=== PATIENT | male | born 1995 | race African-American/Black ===

== ENCOUNTER 2025-03-17 12:30 | Emergency (ER) | payer SELFPAY ==
[2025-03-17 12:34] VITALS: BP 120/94; PULSE 65; TEMP 36.5; O2SAT 98
--- OUTSIDE RECORDS SUMMARY | 2025-03-17 12:44 | XMS_ITS | Clinical Summary ---
Author Organization [facility] [employer] [facility] tem Address [id number] [address] [place] [address] Care Team Providers Care Sql Report Analyst Name Role Phone Pcp, Not In System Primary Care Provider Unavail able Allergies No known active allergies Medications No known medications Encounters Date Type Department Care Team Description 01/20/2025 4:37 PM EDT - 01/20/2025 5:50 PM EDT Emergency [facility] [address] [place] [phone] Asymptomatic hypertension (Primary Dx) Discharge Disposition: Home 01/20/2025 Travel from Last 3 Months Social History Tobacco Use Types Packs/Day Years Used Date Smoking Tobacco: Never Assessed Sex and Gender Information Value Date Recorded Sex Assigned at Not on file Legal Sex Male 4:23 PM EDT Gender Identity Not on file Sexual Orientation Not on file Last Filed Vital Signs Vital Sign Reading Time Taken Comments Blood Pressure 129/77 01/20/2025 5:45 PM EDT Pulse 71 01/20/2025 5:50 PM EDT Temperature 36.7 C (98.1 F) 01/20/2025 4:42 PM EDT Respiratory Rate 18 01/20/2025 5:50 PM EDT Oxygen Saturation 96% 01/20/2025 5:45 PM EDT Inhaled Oxygen Concentration - - Weight 107.5 kg (237 lb) 01/20/2025 4:44 PM EDT Height 188 cm (6' 2 ) 01/20/2025 4:44 PM EDT Body Mass Index 30.43 01/20/2025 4:44 PM EDT Plan of Treatment Not on file Medical Devices Not on file Procedures Procedure Name Priority Date/Time Associated Diagnosis Comments POCT TROPONIN (WBCTI) Routine 01/20/2025 5:17 PM EDT POCT CBC Routine 01/20/2025 5:12 PM EDT POCT ELECTROLYTES W/ BUN, CREAT, GLUC, IONIC CA Routine 01/20/2025 5:10 PM EDT ECG 12-LEAD STAT 01/20/2025 5:02 PM EDT from Last 3 Months Results * POCT Troponin (01/20/2025 5:17 PM EDT) Pathologist [facility] POC Troponin <0.01 0.00 - 0.08 ng/mL 01/20/2025 5:19 PM EDT [facility] 01/20/2025 5:17 PM EDT 01/20/2025 5:19 PM EDT us POINT OF CARE TEST ORDERABLES Fi nal Result [facility] [address] [place] [id number], * POCT CBC (01/20/2025 5:12 PM EDT) WBC (POC) 5.0 4.0 - 11.0 1E+9/l 01/20/2025 5:08 PM EDT [facility] RBC (POC) 5.44 4.10 - 5.70 1E+12/l 01/20/2025 5:08 PM EDT [facility] POC Hemoglobin 15.8 13.0 - 17.0 g/dl 01/20/2025 5:08 PM EDT [facility] POC Hematocrit 46 39 - 49 % 01/20/2025 5:08 PM EDT [facility] MCV (POC) 84.3 80.0 - 100.0 fl 01/20/2025 5:08 PM EDT [facility] MCH (POC) 29.1 27.0 - 34.0 pg 01/20/2025 5:08 PM EDT [facility] MCHC (POC) 34.5 32.0 - 36.0 g/dl 01/20/2025 5:08 PM EDT [facility] RDW (POC) 12.7 11.5 - 15.0 % 01/20/2025 5:08 PM EDT [facility] PLT (POC) 219 150 - 450 1E+9/l 01/20/2025 5:08 PM EDT [facility] MPV (POC) 10 7 - 12 fl 01/20/2025 5:08 PM EDT [facility] Absolute Granulocytes (POC) 2.3 1.5 - 7.2 1E+9/l 01/20/2025 5:08 PM EDT [facility] Absolute Lymphocyte (POC) 2.2 1.0 - 3.5 1E+9/l 01/20/2025 5:08 PM EDT [facility] Absolute Mid (POC) 0.5 0.0 - 0.9 1E+9/l 01/20/2025 5:08 PM EDT [facility] % Granulocyte (POC) 46.9 % 01/20/2025 5:08 PM EDT [facility] % Lymphocyte (POC) 44.5 % 01/20/2025 5:08 PM EDT [facility] % Mid (POC) 8.6 % 01/20/2025 5:08 PM EDT [facility] 01/20/2025 5:12 PM EDT 01/20/2025 5:08 PM EDT us POINT OF CARE TEST ORDERABLES Fi nal Result [facility] [address] [place] [id number], [place] * POCT Electrolytes w/ BUN, Creat, Gluc, Ionic Ca (01/20/2025 5:10 PM EDT) POC Sodium 139 134 - 146 mmol/L 01/20/2025 5:12 PM EDT [facility] POC Potassium 3.9 3.5 - 5.0 mmol/L 01/20/2025 5:12 PM EDT [facility] POC Chloride 101 98 - 109 mmol/L 01/20/2025 5:12 PM EDT [facility] POC TCO2 26 22 - 32 mmol/L 01/20/2025 5:12 PM EDT [facility] POC Glucose 94 65 - 99 mg/dL 01/20/2025 5:12 PM EDT [facility] POC BUN 12 6 - 23 mg/dL 01/20/2025 5:12 PM EDT [facility] POC Creatinine 1.2 0.7 - 1.2 mg/dL 01/20/2025 5:12 PM EDT [facility] POC Ionized Calcium 5.1 4.5 - 5.3 mg/dL 01/20/2025 5:12 PM EDT [facility] POC EGFR Non-Race Dependent 83 >=60 ml/min/1.7 3sq.m 01/20/2025 5:12 PM EDT [facility] Comment: Reported eGFR is based on the CKD-EPI 2020 equation that does not use a race coefficient. 01/20/2025 5:10 PM EDT 01/20/2025 5:12 PM EDT us POINT OF CARE TEST ORDERABLES Fi nal Result [facility] [address] [place] [id number], [place] * ECG 12 lead (01/20/2025 5:02 PM EDT) 01/20/2025 5:02 PM EDT Narrative [facility] - 02/14/2025 8:41 AM EDT us Cornelius Rios PA-C ECG ORDERABLES Final Resul t [facility] from Last 3 Months Care Teams Sql Report Analyst Relationship Specialty Start Date End Date Pcp, [place] [address] PCP - General Family Medicine 01/20/25
--- NOTE | 2025-03-17 13:13 | ECG_ITS ---
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
--- NOTE | 2025-03-17 13:14 | ED.GENADUL1 ---
HPI HPI - General Adult General Chief complaint: Recheck/Abnormal Lab/Rx Stated complaint: BLOOD PRESSURE CHECK Time Seen by Provider: 03/17/25 12:32 Source: patient Mode of arrival: walk-in History of Present Illness HPI narrative: The patient is a 30-year-old -Sammar[place] male who presents to the emergency department today for evaluation of concerns for hypertension. Patient is from [place] and travels [place] work [place] to the [place] and will be local in the area through May. He presented very concerned for hypertension and states he has a blood pressure cuff at home that has been reading SBP's 150s with DBP 100s. He reports he had an uncle this past year was 37 suddenly of cardiovascular disease in addition to his father last year home was in his 40s last due to cardiovascular disease. He denies any chest pain, shortness of breath, abdominal pain, nausea/vomiting. No episodes of diaphoresis or dizziness/syncope. He states he was at [facility] last month due to concerns for hypertension where he had labs and an EKG that he stated were normal and was subsequently discharged. He otherwise denies any significant medical or surgical history. He is currently not on any medical therapy for hypertension. Related Data Allergies Allergy/AdvReac Type Severity Reaction Status Date / Time No Known Drug Allergies Allergy Verified 03/17/25 12:44 Review of Systems ROS Status of ROS 10 or more systems reviewed and unremarkable except as noted in history and below Exam Narrative Exam Narrative: Constituational: Awake/ alert, no apparent distress, well hydrated HENMT: normocephalic, external ears normal, moist oral mucous membranes and oropharynx normal Eyes: EOMI and conjunctivae normal Neck: ROM intact Chest: inspection of chest normal Respiratory: Normal respiratory effort, clear to auscultation bilaterally Cardio: regular rate and regular rhythm GI: soft to palpation and non-tender Back: nontender MSK: ROM intact, +NVI Skin: no rashes or petechiae Neuro: no focal deficits Psych: mental status grossly normal Constitutional Vital Signs, click to edit/add: Last Vital Signs Temp 97.7 F 03/17/25 12:34 Pulse 65 03/17/25 12:34 Resp 16 03/17/25 12:34 BP 118/94 H 03/17/25 14:31 Pulse Ox 98 03/17/25 12:34 O2 Del Method Room Air 03/17/25 12:34 Course Vital Signs Vital signs: Vital Signs Temperature 97.7 F 03/17/25 12:34 Pulse Rate 65 03/17/25 12:34 Respiratory Rate 16 03/17/25 12:34 Blood Pressure 120/94 H 03/17/25 12:34 Pulse Oximetry 98 03/17/25 12:34 Oxygen Delivery Method Room Air 03/17/25 12:34 Temperature 97.7 F 03/17/25 12:34 Pulse Rate 65 03/17/25 12:34 Respiratory Rate 16 03/17/25 12:34 Blood Pressure 118/94 H 03/17/25 14:31 Pulse Oximetry 98 03/17/25 12:34 Oxygen Delivery Method Room Air 03/17/25 12:34 Medical Decision Making MDM Narrative Medical decision making narrative: The patient is a well-appearing 30-year-old -Sammar[place] male who presented to the emergency department today for evaluation of concerns for high blood pressure. Initial examination vital signs overall stable. He does not appear to be exhibiting any ischemic symptoms and does appear euvolemic on exam. Patient with family history of cardiovascular disease with his biological father and uncle who both at young ages of reported heart attacks and cardiovascular disease. Patient is concerned for his overall cardiovascular health and would like to make sure that his risk factors are being managed appropriately. Vital signs again were overall stable and manual blood pressure 120s/ 90s. EKG without acute changes and troponin is negative x 1. Labs stable as below. Fasting lipid panel obtained in the ER with noted total cholesterol in normal range, LDLs mildly elevated, normal triglycerides. Discussed these findings with the patient including recommendations for supportive care and risk modification for cardiovascular disease. Discussed following a heart healthy diet and physical activity with the patient for over 10 minutes. The patient is not a smoker. Historically patient is from [place] and will be local in the area through May due to traveling and working with the [employer]. Patient provided referral information to establish with primary care for further evaluation from the emergency department today. Discussed signs and symptoms of any worsening condition and when to consider reevaluation by the emergency department. Patient verbalized an understanding of this and is agreeable with the plan to be discharged home. Medical Records Medical records reviewed: Yes I reviewed the patient's medical records Lab Data Lab results reviewed: Yes I reviewed the patient's lab results Labs: Lab Results 03/17/25 Range/Units 13:27 WBC 3.2 L (4.0-11.0) 10^3/uL RBC 5.57 (4.70-6.10) 10^6/uL Hgb 16.2 (14.0-18.0) g/dL Hct 47.2 (42.0-54.0) % MCV 84.7 (80.0-94.0) fL MCH 29.1 (25.9-34.0) pg MCHC 34.3 (29.9-35.2) g/dL RDW 12.4 (11.0-15.0) % Plt Count 199 (150-450) 10^3/uL MPV 11.7 (9.5-13.5) fL Neut % (Auto) 36.7 L (43.0-75.0) % Lymph % (Auto) 47.4 (20.5-60.0) % [place] % (Auto) 13.7 H (1.7-12.0) % Eos % (Auto) 0.6 L (0.9-7.0) % Baso % (Auto) 1.6 (0.2-2.0) % Neut # (Auto) 1.2 L (1.4-6.5) 10^3/uL Lymph # (Auto) 1.5 (1.2-3.8) 10^3/uL [place] # (Auto) 0.4 (0.3-0.8) 10^3/uL Eos # (Auto) 0.0 (0.0-0.7) 10^3/uL Baso # (Auto) 0.1 (0.0-0.1) 10^3/uL Abs Immat Gran (auto) 0.00 (0.00-0.03) 10^3/uL Imm/Tot Granulo (auto) 0.0 (0.0-0.5) % Sodium 143 (136-145) mmol/L Potassium 4.2 (3.5-5.1) mmol/L Chloride 104 (98-107) mmol/L Carbon Dioxide 29.6 (21.0-32.0) mmol/L Anion Gap 13.6 BUN 16.0 (7.0-18.0) mg/dL Creatinine 1.06 (0.70-1.30) mg/dL Est GFR ( Amer) >60 (>=60 mL/min/1.73m^2) Est GFR (Non-Af Amer) >60 (>=60 mL/min/1.73m^2) BUN/Creatinine Ratio 15.1 Glucose 90 (74-106) mg/dL Calcium 9.3 (8.5-10.1) mg/dL Total Bilirubin 1.1 H (0.2-1.0) mg/dL AST 37 (15-37) U/L ALT 69 H (16-63) U/L Alkaline Phosphatase 61 (46-116) U/L Troponin I High Sens 5.6 (4.0-76.1) pg/mL Total Protein 7.6 (6.4-8.2) g/dL Albumin 4.1 (3.4-5.0) g/dL Globulin 3.5 g/dL Albumin/Globulin Ratio 1.2 Triglycerides 74 (<=150) mg/dL Cholesterol 181 (<=200) mg/dL LDL Cholesterol, Calc 119.2 mg/dL VLDL Cholesterol 14.8 mg/dL HDL Cholesterol 47 (40-60) mg/dL Cholesterol/HDL Ratio 3.9 ECG Data Attestation: I personally reviewed and interpreted this ECG as follows: (SR with HR 66, first-degree AV block, no acute/ischemic changes) Discharge Plan Discharge Chief Complaint: Recheck/Abnormal Lab/Rx Clinical Impression: Encounter for medical screening examination Patient Disposition: Home, Self-Care Mode of Transportation: Private Vehicle Print Language: Maldivian Instructions: Hypertension (ED), Hyperlipidemia (DC) Additional Instructions: Follow-up with PCP to establish care. Continue to follow a heart healthy diet and monitor your blood pressure as discussed. Return to the ER with any concerns at any time. Referrals: Hugo Duarte MD [Physician, Family Practice] - 1 week Physician,Non-Staff, [Primary Care Provider] - 1 week Discharge Date/Time: 03/17/25 14:49
[2025-03-17 13:48] LABS: Hematocrit 47.2 % (42.0-54.0); Hemoglobin 16.2 g/dL (14.0-18.0); Immature Granulocytes Abs Auto 0.00 10^3/uL (0.00-0.03); Immature Granulocytes Pct Auto 0.0 % (0.0-0.5); Lymphocytes Absolute Auto 1.5 10^3/uL (1.2-3.8); Mean Corpuscular HGB Conc 34.3 g/dL (29.9-35.2); Mean Corpuscular Hemoglobin 29.1 pg (25.9-34.0); Mean Corpuscular Volume 84.7 fL (80.0-94.0); Platelet Count 199 10^3/uL (150-450); Red Blood Count 5.57 10^6/uL (4.70-6.10); White Blood Count 3.2 10^3/uL (4.0-11.0)
--- NOTE | 2025-03-17 13:51 | PC.NURSE ---
pt came in worried about his blood pressure - concerned because his dad and uncle have both in the last 8 months of heart attacks. BP now is stable. Nurse practioner at bedside as well. pt denies any chest pain or SOB.
[2025-03-17 14:00] LABS: Alanine Aminotransferase 69 U/L (16-63); Albumin Globulin Ratio 1.2; Albumin Level 4.1 g/dL (3.4-5.0); Alkaline Phosphatase 61 U/L (46-116); Anion Gap 13.6; Aspartate Amino Transferase 37 U/L (15-37); Blood Urea Nitrogen 16.0 mg/dL (7.0-18.0); Calcium 9.3 mg/dL (8.5-10.1); Carbon Dioxide 29.6 mmol/L (21.0-32.0); Chloride 104 mmol/L (98-107); Estimated GFR (African America >60 (>=60 mL/min/1.73m^2); Estimated GFR (Non-African Ame >60 (>=60 mL/min/1.73m^2); Globulin 3.5 g/dL; Glucose 90 mg/dL (74-106); Potassium 4.2 mmol/L (3.5-5.1); Sodium 143 mmol/L (136-145); Total Protein 7.6 g/dL (6.4-8.2)
[2025-03-17 14:25] LABS: Cholesterol 181 mg/dL (<=200); HDL Cholesterol 47 mg/dL (40-60); Triglycerides 74 mg/dL (<=150); VLDL CHOLESTEROL 14.8 mg/dL
[2025-03-17 14:31] VITALS: BP 118/94
== END 2025-03-17 14:49 | disposition home or self-care (01) ==
PROVIDERS: Nurse Practitioner; Emergency Provider Emergency Medicine
DX: Z00.00 Encounter for general adult medical examination without abnormal findings (principal); Z82.49 Family history of ischemic heart disease and other diseases of the circulatory system
CPT/HCPCS: 36415; 80053; 80061; 84484; 85025; 93005; 99285